=== PATIENT | female | born 1995 | race Caucasian/White ===

== ENCOUNTER 2023-02-19 12:56 | Emergency (ER) | payer OTHER ==
[~2023-02-19] VITALS: Ht 167.6 cm; Wt 63.5 kg
[2023-02-19 13:44] VITALS: BP 112/79; PULSE 63; RESP 14; TEMP 98; O2SAT 95
[2023-02-19] MEDS ORDERED: IBUP-2213 PO (16:46)
[2023-02-19 17:08] VITALS: BP 115/75; PULSE 60; RESP 14; TEMP 98; O2SAT 99
== END 2023-02-19 17:08 | disposition home or self-care (01) ==
LOC: MED 12:56
DX: S16.1XXA Strain of muscle, fascia and tendon at neck level, initial encounter (principal); S30.0XXA Contusion of lower back and pelvis, initial encounter; Z79.1 Long term (current) use of non-steroidal anti-inflammatories (NSAID); W01.198A Fall on same level from slipping, tripping and stumbling with subsequent striking against other object, initial encounter; Y93.01 Activity, walking, marching and hiking; Y92.89 Other specified places as the place of occurrence of the external cause; Y99.0 Civilian activity done for income or pay
CPT/HCPCS: 72040; 72110; 81025; 99284